=== PATIENT | female | born 1950 | race Caucasian/White ===

== ENCOUNTER 2019-03-02 02:21 | Emergency (ER) | payer OTHER ==
[~2019-03-02] VITALS: Ht 160 cm; Wt 105.2 kg
[~2019-03-02 02:21] MED LIST: LOSARTAN-HCTZ1 EAC1; METFORMIN HCL500 MG; METOPROLOL SUC200 MG
[2019-03-02] MEDS ORDERED: MOBIC15 MG PO (05:56)
[2019-03-02] MEDS ORDERED: CEFPROZIL500 MG PO (05:56)
== END 2019-03-02 06:02 | disposition home or self-care (01) ==
LOC: ER 02:21
DX: N39.0 Urinary tract infection, site not specified (principal); R10.32 Left lower quadrant pain

== ENCOUNTER → 2020-11-19 | Outpatient (CLI) | payer OTHER ==
[~2020-11-19] MED LIST changes: +CEFPROZIL500 MG PO; +MOBIC15 MG PO
== END | disposition home or self-care (01) ==
LOC: RAD 08:39
PROVIDERS: ATTEND Urology
DX: N20.1 Calculus of ureter (principal)

== ENCOUNTER 2022-03-27 09:15 | Outpatient (CLI) | payer OTHER ==
[~2022-03-27 09:15] MED LIST changes: +APRESOLINE 10MG10 MG; +CHLORTHALIDONE25 MG; +DICLOFENAC SOD100 GM; +GABAPENTIN600 MG; +LOSARTAN POTAS100 MG; +METFORMIN HCL500 M4; +MYRBETRIQ25 MG; +NEXIUM 24HR20 M1; +PREGABALIN150 MG; +RESTORIL30 MG; +ROSUVASTATIN CAL5 MG; +SERTRALINE HCL50 MG; +ST. JOSEPH ASPI81 M2; +VASOFLEX FORTE1 EACH; +VITAMIN B-COMP1 EAC2; +VITAMIN D350 MCG
== END 2022-03-27 09:17 | disposition home or self-care (01) ==
LOC: LAB 09:15
PROVIDERS: ATTEND Radiology Diagnostic Radiology
DX: R10.32 Left lower quadrant pain (principal)

== ENCOUNTER 2022-04-01 08:30 | Outpatient (CLI) | payer OTHER | END 2022-04-01 08:32 | disposition home or self-care (01) | LOC: SONOGRAMA 08:30 | DX: R10.13 Epigastric pain (principal); R94.5 Abnormal results of liver function studies ==

== ENCOUNTER 2022-05-01 07:23 | Outpatient (CLI) | payer OTHER | END 2022-05-01 07:27 | disposition home or self-care (01) | LOC: TOM 07:23 | PROVIDERS: ATTEND Urology | DX: N39.3 Stress incontinence (female) (male) (principal); N20.0 Calculus of kidney ==